=== PATIENT | male | born 1975 | race Caucasian/White ===

== ENCOUNTER 2016-12-25 12:07 | Emergency (ER) | payer OTHER ==
[2016-12-25] MEDS ORDERED: NORCO 5-325 TA1 EACH PO (12:39)
[2016-12-25] MEDS ORDERED: IBUPROFEN800 M1 PO (12:39)
== END 2016-12-25 13:39 ==
LOC: EDMED 12:07
DX: S46.911A Strain of unspecified muscle, fascia and tendon at shoulder and upper arm level, right arm, initial encounter (principal); S29.012A Strain of muscle and tendon of back wall of thorax, initial encounter; I10 Essential (primary) hypertension; Z87.891 Personal history of nicotine dependence; X50.1XXA Overexertion from prolonged static or awkward postures, initial encounter; Y93.89 Activity, other specified; Y92.69 Other specified industrial and construction area as the place of occurrence of the external cause; Y99.0 Civilian activity done for income or pay